=== PATIENT | female | born 1980 | race Two or more races ===

== ENCOUNTER 2020-03-05 09:27 | Observation (INO) | payer BC ==
[~2020-03-05] VITALS: Ht 157.5 cm; Wt 71.2 kg
[~2020-03-05 09:27] MED LIST: RANI-185
[2020-03-05] MEDS ORDERED: PREN-96 PO (09:41)
[2020-03-05 11:10] LABS: Basophils # (auto) 0 10 ^3/uL (0-0.2); Basophils % (auto) 0.4 % (0.0-2.0); Eosinophils # (auto) 0.1 10 ^3/uL (0-0.8); Eosinophils % (auto) 0.9 % (0.0-7.0); Hematocrit 32.7 % (36.0-46.0); Hemoglobin 11.3 g/dL (12.2-16.2); Lymphocytes # (auto) 1.1 10 ^3/uL (0.4-5.4); Lymphocytes % (auto) 14.5 % (10.0-50.0); Mean Corpuscular Hgb Conc. 34.5 g/dL (32.0-36.0); Mean Corpuscular Volume 89.6 fL (80.0-100.0); Monocytes # (auto) 0.3 10 ^3/uL (0-1.3); Monocytes % (auto) 4.6 % (0.0-12.0); Neutrophils % (auto) 79.6 % (37.0-80.0); Platelet Count (auto) 118 10^3/uL (140-450); Red Blood Cells 3.65 10^6/uL (4.0-5.20); Red Cell Distribution Width 15.3 % (11.8-14.3); White Blood Cell 7.5 10^3/uL (4.4-10.8)
[2020-03-05 11:24] LABS: INR 0.95 (0.9-1.15); Partial Thromboplastin Time 25.9 sec (23.64-32.05)
[2020-03-05 11:34] LABS: Albumin 2.6 g/dL (3.4-5.0); Potassium 3.1 mmol/L (3.5-5.1)
[2020-03-05 11:38] LABS: BUN/Creatinine Ratio 11.5; Bilirubin, Total 1.6 mg/dL (0.2-1.0); Total Protein 6.3 g/dL (6.4-8.2); Uric Acid 4.2 mg/dL (2.6-6.0)
[2020-03-05] MEDS ORDERED: POTASSIUM CHL 20 Meq TABLET PO ONE (12:00)
== END 2020-03-05 12:15 | disposition home or self-care (01) | DRG 833 ==
LOC: LDRP 09:27
PROVIDERS: ADMIT Obstetrics & Gynecology; ATTEND Obstetrics & Gynecology
DX: O26.893 Other specified pregnancy related conditions, third trimester (principal); M79.89 Other specified soft tissue disorders; Z3A.37 37 weeks gestation of pregnancy
CPT/HCPCS: 36415; 59025; 76818; 80053; 81002; 84550; 85025; 85610; 85730; G0378

== ENCOUNTER 2020-03-14 18:00 | Inpatient (IN) | payer BC ==
[~2020-03-14] VITALS: Ht 157.5 cm; Wt 72.1 kg
[~2020-03-14 18:00] MED LIST changes: +PREN-96 PO; -RANI-185
[2020-03-14] MEDS ORDERED: LACT. RINGERS/OXYTOCIN 20UNITS 1,000 ML IV SCH (18:21)
[2020-03-14] MEDS ORDERED: METHYLERGONOVINE MALEATE 0.2 MG/ML AMP IM PRN (18:30)
[2020-03-14] MEDS ORDERED: PHISODERM TOP SOLN 240ML BTL TOP PRN (18:30)
[2020-03-14] MEDS ORDERED: CARBOPROST TROMETHAMINE 250 MCG/1ML VIAL IM PRN (18:30)
[2020-03-14] MEDS ORDERED: DERMOPLAST 60ML BOTTLE TOP PRN (18:30)
[2020-03-14] MEDS ORDERED: LIDOCAINE 2%HCL (LOCAL ANESTH.) INJ 20ML MDV ID ONE (18:30)
[2020-03-14] MEDS ORDERED: PENICILLIN G POT 5MIL/D5 50ML 50 ML IV ONE (18:30)
[2020-03-14] MEDS ORDERED: WITCH HAZEL-GLYCERIN PAD TOP PRN (18:30)
[2020-03-14] MEDS: LACTATED RINGER'S 1,000 ML IV SCH (18:53)
[2020-03-14 19:10] LABS: Basophils # (auto) 0 10 ^3/uL (0-0.2); Basophils % (auto) 0.2 % (0.0-2.0); Eosinophils # (auto) 0 10 ^3/uL (0-0.8); Eosinophils % (auto) 0.5 % (0.0-7.0); Hematocrit 34.5 % (36.0-46.0); Hemoglobin 11.7 g/dL (12.2-16.2); Lymphocytes # (auto) 1.7 10 ^3/uL (0.4-5.4); Lymphocytes % (auto) 21.5 % (10.0-50.0); Mean Corpuscular Hemoglobin 30.6 pg (28.0-32.0); Mean Corpuscular Hgb Conc. 33.9 g/dL (32.0-36.0); Mean Corpuscular Volume 90.1 fL (80.0-100.0); Monocytes # (auto) 0.5 10 ^3/uL (0-1.3); Monocytes % (auto) 6.5 % (0.0-12.0); Neutrophils # (auto) 5.6 10 ^3/uL (1.6-8.6); Neutrophils % (auto) 71.3 % (37.0-80.0); Nucleated Red Blood Cells % 0.1 %; Platelet Count (auto) 128 10^3/uL (140-450); Red Blood Cells 3.83 10^6/uL (4.0-5.20); Red Cell Distribution Width 15.5 % (11.8-14.3); White Blood Cell 7.9 10^3/uL (4.4-10.8)
[2020-03-14 19:13] LABS: Urine Bacteria FEW /hpf (None Seen); Urine Blood TRACE /uL (Negative); Urine Specific Gravity 1.005 (1.001-1.035); Urine WBC 3 /hpf (0 - 5)
[2020-03-14 19:25] LABS: INR 0.94 (0.9-1.15); Partial Thromboplastin Time 25.9 sec (23.64-32.05)
[2020-03-14 19:28] LABS: Amphetamine Screen, Urine NEGATIVE (NEGATIVE); Barbiturate Scree,Urine NEGATIVE (NEGATIVE); Benzodiazephine Screen, Urine NEGATIVE (NEGATIVE); Cannabinoid Screen, Urine NEGATIVE (NEGATIVE); Cocaine Screen, Urine NEGATIVE (NEGATIVE); Opiate Scree,Urine NEGATIVE (NEGATIVE); Phencyclidine Screen, Urine NEGATIVE (NEGATIVE)
[2020-03-14 19:29] LABS: Albumin 2.7 g/dL (3.4-5.0); Calcium 8.7 mg/dL (8.5-10.1); Potassium 3.6 mmol/L (3.5-5.1)
[2020-03-14 19:31] LABS: BUN/Creatinine Ratio 14.3
[2020-03-14 19:34] LABS: Bilirubin, Total 1.7 mg/dL (0.2-1.0); Total Protein 6.5 g/dL (6.4-8.2)
[2020-03-14 19:35] LABS: Alcohol, Urine < 3.0 mg/dL (0-10)
[2020-03-14] MEDS ORDERED: LACTATED RINGER'S 1,000 ML IV ONE (20:43)
[2020-03-14] MEDS ORDERED: fentaNYL 200mCg/100ml W ROPIVA 100 ML EPI SCH (20:45)
[2020-03-14] MEDS ORDERED: ePHEDrine SULFATE 50 MG/ML AMP IV ONE ×2 (20:45→21:45)
[2020-03-14] MEDS ORDERED: LIDOCAINE W/ EPINEPHRINE 1 % INJ 30ML IJ ONE (20:45)
[2020-03-14] MEDS ORDERED: fentaNYL CITRATE 100 MCG/2 ML VL IV ONE (20:45)
[2020-03-14] MEDS ORDERED: NALOXONE HCL 0.4 MG/ML VIAL IV ONE ×2 (20:45→21:45)
[2020-03-14] MEDS ORDERED: LIDOCAINE HCL 2 %PF INJ 10ML AMP IJ ONE ×2 (21:12→22:15)
[2020-03-14] MEDS ORDERED: LACTATED RINGER'S 500 ML IV ONE (21:39)
[2020-03-14] MEDS ORDERED: SODIUM CHLORIDE 0.9% 500 ML IV PRN (21:39)
[2020-03-14] MEDS: PENICILLIN G POTASSIUM 2,500,000 UNITS in D5W 5% 50 ML IV SCH (22:53)
[2020-03-14] MEDS: fentaNYL 200mCg/100ml W ROPIVA 100 ML EPI SCH (23:10)
[2020-03-15] MEDS ORDERED: ONDANSETRON HCL 4 MG/2 ML VIAL IV PRN (02:40)
[2020-03-15] MEDS ORDERED: PENICILLIN G POT 5MIL/D5 50ML 0 ML IV ONE (02:56)
[2020-03-15] MEDS: PENICILLIN G POTASSIUM 2,500,000 UNITS in D5W 5% 50 ML IV SCH (03:09)
[2020-03-15] MEDS: fentaNYL 200mCg/100ml W ROPIVA 100 ML EPI SCH (05:46)
[2020-03-15] MEDS ORDERED: ACETAMINOPHEN 325 MG TAB PO PRN (07:15)
--- NOTE | 2020-03-15 08:15 | NUR ---
Ambulation: Patient OOB with standby assistance by RN. Patient ambulated to bathroom with steady gait. Patient able to void without difficulty. Pericare teaching provided with returned demonstration by patient. Clean gown provided and bed linen changed. Patient ambulated back to bed with steady gait and no distress noted.
[2020-03-15] MEDS: IBUPROFEN 600 MG TAB PO PRN ×2 (08:49→16:24)
--- NOTE | 2020-03-15 08:50 | NUR ---
MAGGIEAR received from Callie Ruffin RN.
[2020-03-15 10:47] VITALS: BP 104/56
[2020-03-15 15:05] VITALS: BP 113/64
[2020-03-15 19:00] VITALS: BP 132/73
--- NOTE | 2020-03-15 20:52 | NUR ---
IV removal IV DC'd with clean technique, catheter fully intact. Pressure dressing applied to site. Patient tolerated well. NOTE:
[2020-03-15 23:00] VITALS: BP 118/69
[2020-03-16 03:00] VITALS: BP 134/87
[2020-03-16] MEDS: IBUPROFEN 600 MG TAB PO PRN (04:49)
[2020-03-16] MEDS: LACTATED RINGER'S 1,000 ML IV SCH (06:22)
[2020-03-16 06:35] VITALS: BP 112/72
--- NOTE | 2020-03-16 10:00 | NUR ---
Discharge: Discharge instructions given as ordered. Pt encouraged to follow up with HARMONIC ANALYST as instructed. All questions and concerns addressed. Patient verbalized understanding. Medication reconciliation completed and copy given to patient. Patient encouraged to prepare to depart unit.
--- NOTE | 2020-03-16 10:17 | NUR ---
Discharge: Patient taken to vehicle via wheelchair with all personal belongings, accompanied by staff and family member. No distress noted at time of departure, no adverse changes in status since initial assessment.
[2020-03-17 07:10] LABS: RPR Non Reactive (Non Reactive)
[2020-07-17] MEDS ORDERED: CHOL20007 PO (10:51)
== END 2020-03-16 10:17 | disposition home or self-care (01) | DRG 807 ==
LOC: LDRP 18:00 → OBSVTOIN 18:05
PROVIDERS: ADMIT Obstetrics & Gynecology; ATTEND Obstetrics & Gynecology
PROC: 10E0XZZ Delivery of Products of Conception, External Approach (ICD-10-PCS; principal; 2020-03-15)
PROC: 0HQ9XZZ Repair Perineum Skin, External Approach (ICD-10-PCS; 2020-03-15)
PROC: 3E0R3BZ Introduction of Anesthetic Agent into Spinal Canal, Percutaneous Approach (ICD-10-PCS; 2020-03-15)
PROC: 00HU33Z Insertion of Infusion Device into Spinal Canal, Percutaneous Approach (ICD-10-PCS; 2020-03-15)
DX: O70.0 First degree perineal laceration during delivery (principal); Z37.0 Single live birth; Z3A.39 39 weeks gestation of pregnancy; Z11.59 Encounter for screening for other viral diseases
CPT/HCPCS: 36415; 51702; 59409; 62282; 80053; 80307; 81001; 84112; 85025; 85610; 85730; 86592; 86850; 86900; 86901; 94760; 96365; 96366; 96374; G0378; J2405; J2540; J2590; J7060

== ENCOUNTER 2020-04-22 18:22 | Inpatient (IN) | payer BC ==
[~2020-04-22] VITALS: Ht 157.5 cm; Wt 63.0 kg
--- NOTE | 2020-04-22 18:10 | NUR ---
Pt Arrived on Unit Pt arrived on unit from [facility]. Pt is a/ox4 with no s/s of distress or SOB. Pt is able to ambulate without difficulty. Safety measures initiated with call light within reach, bed in lowest position and side rails up. Will continue to monitor.
--- NOTE | 2020-04-22 18:23 | NUR ---
Keely Riggs MD requesting orders and informing of arrival of patient. Will continue to monitor. Addendum: 04/22/20 at 1852 by JANIS SINHA RN RN CALLED BACK. ORDERS GIVEN, READ BACK AND VERIFIED. WILL IMPLEMENT.
[2020-04-22] MEDS ORDERED: HYDROcodone-ACET 5/325MG TAB PO PRN (18:45)
[2020-04-22] MEDS ORDERED: levoFLOXacin 750MG 150 ML IV ONE (18:45)
[2020-04-22] MEDS ORDERED: MORPHINE SULF INJ 2 MG/ML SYRINGE 1ML IV PRN (18:45)
[2020-04-22 18:52] VITALS: BP 150/93
[2020-04-22] MEDS: SODIUM CHLORIDE 0.9% 1,000 ML IV SCH (19:11)
--- NOTE | 2020-04-22 20:00 | NUR ---
Keely hospitalist Patient requesting something for a headache Addendum: 04/23/20 at 0049 by IMTIAZ WEINBERG RN RN Actual time [facility] [id number]
--- NOTE | 2020-04-22 20:00 | NUR ---
Opening Shift Note Assumed care of patient. Awake, alert and oriented x4. No S/S of distress/SOB or pain. Patient is on room air with even and unlabored respirations. Instructed on POC and to call for assist PRN. Bed locked, in lowest position, call light within reach, side rails up x2. Will continue to monitor for changes Q1hr and PRN.
[2020-04-22] MEDS: ONDANSETRON HCL 4 MG/2 ML VIAL IV PRN (20:31)
--- NOTE | 2020-04-22 21:54 | NUR ---
IV insertion IV access obtained, via clean sterile technique by inserting 20 gauge catheter at left upper arm after 2 attempts. IV secured properly. No trauma to site. Patient tolerated well.
[2020-04-22 22:00] VITALS: BP 151/80
--- NOTE | 2020-04-22 22:01 | NUR ---
IV removal Patient reporting pain at IV site. Right AC IV DC'd with sterile technique, catheter fully intact. Pressure dressing applied to site. Patient tolerated procedure well.
[2020-04-22] MEDS ORDERED: ACETAMINOPHEN 325 MG TAB PO ONE (22:15)
--- NOTE | 2020-04-22 22:15 | NUR ---
Call back from hospitalist New orders received. Will continue with care
[2020-04-22] MEDS: metroNIDAZOLE 500MG/100ML 100 ML IV SCH (22:54)
--- NOTE | 2020-04-22 23:15 | NUR ---
Call from MD Zbigniew Sotomayor New orders received. Will continue with care.
[2020-04-23 05:00] VITALS: BP 139/86
[2020-04-23] MEDS: metroNIDAZOLE 500MG/100ML 100 ML IV SCH ×3 (05:34→22:18)
[2020-04-23] MEDS: SODIUM CHLORIDE 0.9% 1,000 ML IV SCH ×2 (05:34→14:45)
--- NOTE | 2020-04-23 06:25 | NUR ---
Hospitalist paged Pt requesting something for a headache. Awaiting call back
[2020-04-23 06:38] LABS: Basophils # (auto) 0 10 ^3/uL (0-0.2); Basophils % (auto) 0.3 % (0.0-2.0); Eosinophils # (auto) 0.1 10 ^3/uL (0-0.8); Eosinophils % (auto) 2.5 % (0.0-7.0); Hematocrit 39.8 % (36.0-46.0); Hemoglobin 13.4 g/dL (12.2-16.2); Lymphocytes # (auto) 1.2 10 ^3/uL (0.4-5.4); Lymphocytes % (auto) 23.5 % (10.0-50.0); Mean Corpuscular Hemoglobin 29.4 pg (28.0-32.0); Mean Corpuscular Hgb Conc. 33.6 g/dL (32.0-36.0); Mean Corpuscular Volume 87.6 fL (80.0-100.0); Monocytes # (auto) 0.3 10 ^3/uL (0-1.3); Monocytes % (auto) 6.1 % (0.0-12.0); Neutrophils # (auto) 3.5 10 ^3/uL (1.6-8.6); Neutrophils % (auto) 67.6 % (37.0-80.0); Nucleated Red Blood Cells % 0.1 %; Platelet Count (auto) 126 10^3/uL (140-450); Red Blood Cells 4.55 10^6/uL (4.0-5.20); Red Cell Distribution Width 14.8 % (11.8-14.3); White Blood Cell 5.1 10^3/uL (4.4-10.8)
[2020-04-23 07:01] LABS: Albumin 3.2 g/dL (3.4-5.0); Calcium 8.3 mg/dL (8.5-10.1); Potassium 3.2 mmol/L (3.5-5.1)
[2020-04-23 07:04] LABS: BUN/Creatinine Ratio 8.9; Bilirubin, Total 6.6 mg/dL (0.2-1.0); Total Protein 6.3 g/dL (6.4-8.2)
[2020-04-23 07:47] LABS: INR 1.06 (0.9-1.15)
--- NOTE | 2020-04-23 07:50 | NUR ---
Opening Note Assumed pt care from NOC RN. Pt is aox4 with no s/s of distress or SOB. Pt is currently sitting upright in bed with mild c/o BILL, 01/16. Discussed POC; pending ERCP today. Pt has not signed consents due to MD not yet speaking with her. Pt is still NPO. Safety measures maintained with call light within reach, bed in lowest position and side rails up. Will continue to monitor.
--- NOTE | 2020-04-23 08:10 | NUR ---
COVID SWAB WALKED TO LAB
[2020-04-23 09:00] VITALS: BP 140/91
[2020-04-23] MEDS: levoFLOXacin 500MG 100 ML IV SCH (09:08)
--- NOTE | 2020-04-23 11:09 | NUR ---
Pt Taken Down to Pre-Op Pt taken to Pre-Op via deborah. Pt is a/ox4 with no s/s of distress or SOB. Report given to Pre-Op staff. All questions were answered. Addendum: 04/23/20 at 1146 by JANIS SINHA RN RN Informed that pt will not have procedure until 1400. Staff sent pt back up to floor. To go back down to Pre-Op at 1330. Pt is a/ox4 with no s/s of distress.
[2020-04-23] MEDS: ONDANSETRON HCL 4 MG/2 ML VIAL IV PRN ×2 (11:48→21:17)
--- NOTE | 2020-04-23 12:16 | NUR ---
Pt C/O BILL/Migraine Pt states that she is experiencing a BILL 04/17 that is not being relived by [employer]. Paged MD for possible orders; left message on answering service. Will continue to monitor.
[2020-04-23] MEDS ORDERED: MORPHINE SULF INJ 2 MG/ML SYRINGE 1ML IV PRN (12:30)
[2020-04-23 13:00] VITALS: BP 148/95
--- NOTE | 2020-04-23 13:10 | NUR ---
Dr Bliss at Bedside MD to see pt. New orders given, read back and verified.
[2020-04-23] MEDS ORDERED: HYDROcodone-ACET 10/325MG TAB PO PRN (13:30)
--- NOTE | 2020-04-23 13:45 | NUR ---
Pt Taken Down to Pre-Op Pt taken down via gurney. Report given to Pre-op staff, all questions were answered. Pt is a/ox4 upon d/c.
[2020-04-23] MEDS ORDERED: IOHEXOL 300 MG/ML 100ML BOTTLE IJ ONE (13:51)
[2020-04-23] MEDS ORDERED: METOCLOPRAMIDE HCL 5MG/ml INJ 2ml VIAL ONE (14:07)
[2020-04-23] MEDS ORDERED: MIDAZOLAM HCL 1MG/1ML-2 ML VIAL ONE ×3 (14:07→14:46)
[2020-04-23] MEDS ORDERED: GLYCOPYRROLATE 0.2 MG/ML 1ML VIAL ONE (14:12)
[2020-04-23] MEDS ORDERED: KETAMINE HCL 10 ML ONE (14:12)
[2020-04-23] MEDS ORDERED: diphenhdrAMINE HCL 50 MG/1 ML VL ONE (14:12)
[2020-04-23] MEDS ORDERED: LIDOCAINE 1% (LOCAL ANESTH.) PF 5ml SDV ONE ×2 (14:13→15:29)
[2020-04-23] MEDS ORDERED: PROPOFOL 10 MG/ML 20 ML IV ONE ×3 (14:14→15:30)
[2020-04-23] MEDS ORDERED: ESMOLOL HCL 10 ML IV ONE (14:28)
[2020-04-23] MEDS ORDERED: METOPROLOL TARTRATE 1MG/1ML-5ML VIAL IV ONE (14:28)
[2020-04-23] MEDS ORDERED: HYDROmorphone HCL 2 MG/ML VL IV PRN ×2 (14:30)
[2020-04-23] MEDS ORDERED: ONDANSETRON HCL 4 MG/2 ML VIAL IV PRN (14:30)
[2020-04-23] MEDS ORDERED: fentaNYL CITRATE 100 MCG/2 ML VL ONE (14:56)
[2020-04-23] MEDS ORDERED: hydrALAZINE HCL 20 MG/ML VL ONE (15:04)
[2020-04-23] MEDS ORDERED: EPINEPHrine HCL 1 MG/10 ML SYRG ONE (16:00)
[2020-04-23] MEDS ORDERED: SOD CHL 0.45% 1,000 ML IV ONE (16:15)
[2020-04-23 17:00] VITALS: BP 144/90
--- NOTE | 2020-04-23 17:08 | NUR ---
Pt Arrived Back on Unit Pt back on unit from OR. Pt is a/ox4 with no s/s of distress or SOB. Pt is drowsey at this time. Abdomen is soft and slightly round. Safety measures maintained with call light within reach, bed in lowest position and side rails up. Bed alarm currently on.
[2020-04-23 17:10] VITALS: BP 151/92
--- NOTE | 2020-04-23 19:15 | NUR ---
Opening Shift Note Assumed care of patient, awake and alert. No S/S of distress/SOB or pain. Instructed on POC and to call for assist PRN, will continue to monitor for changes Q1hr and PRN. Safety precautions in place bed is in lowest position and bed rails 2x. Call light and bedside table are within reach.
[2020-04-23] MEDS: HYDROmorphone HCL 2 MG/ML VL IV PRN (21:17)
[2020-04-23 22:00] VITALS: BP 150/91
[2020-04-24] MEDS: HYDROmorphone HCL 2 MG/ML VL IV PRN ×6 (00:16→17:25)
[2020-04-24] MEDS: ONDANSETRON HCL 4 MG/2 ML VIAL IV PRN (03:41)
[2020-04-24 04:53] LABS: Basophils # (auto) 0 10 ^3/uL (0-0.2); Basophils % (auto) 0.2 % (0.0-2.0); Eosinophils # (auto) 0 10 ^3/uL (0-0.8); Eosinophils % (auto) 0.2 % (0.0-7.0); Hemoglobin 13.8 g/dL (12.2-16.2); Lymphocytes # (auto) 1.3 10 ^3/uL (0.4-5.4); Lymphocytes % (auto) 12.8 % (10.0-50.0); Mean Corpuscular Hemoglobin 29.6 pg (28.0-32.0); Mean Corpuscular Hgb Conc. 33.6 g/dL (32.0-36.0); Mean Corpuscular Volume 88.2 fL (80.0-100.0); Monocytes # (auto) 0.4 10 ^3/uL (0-1.3); Monocytes % (auto) 4.4 % (0.0-12.0); Neutrophils # (auto) 8.3 10 ^3/uL (1.6-8.6); Neutrophils % (auto) 82.4 % (37.0-80.0); Nucleated Red Blood Cells % 0.3 %; Platelet Count (auto) 147 10^3/uL (140-450); Red Blood Cells 4.64 10^6/uL (4.0-5.20); Red Cell Distribution Width 14.9 % (11.8-14.3); White Blood Cell 10.1 10^3/uL (4.4-10.8)
[2020-04-24 05:00] VITALS: BP 149/98
[2020-04-24 05:11] LABS: Albumin 3.5 g/dL (3.4-5.0); Calcium 8.9 mg/dL (8.5-10.1); Potassium 3.2 mmol/L (3.5-5.1)
[2020-04-24 05:16] LABS: BUN/Creatinine Ratio 9.3; Bilirubin, Total 2.7 mg/dL (0.2-1.0); Total Protein 6.9 g/dL (6.4-8.2)
[2020-04-24] MEDS: metroNIDAZOLE 500MG/100ML 100 ML IV SCH ×2 (05:18→13:46)
[2020-04-24 05:46] LABS: Urine Bacteria FEW /hpf (None Seen); Urine Blood 3+ /uL (Negative); Urine Mucus FEW (None Seen); Urine Specific Gravity 1.018 (1.001-1.035); Urine WBC 466 /hpf (0 - 5)
--- NOTE | 2020-04-24 07:12 | NUR ---
End of Shift Note Endorsed care to dayshift RN. At this time patient has no s/s of distress or SOB. Patient responsive to name and touch.
--- NOTE | 2020-04-24 07:40 | NUR ---
Opening Note Assumed pt care from NOC RN. Pt is a/ox4 with no s/s of distress or SOB. Discussed POC with pt and possibility of procedure today; pt verbalized understanding and has been NPO. Pt is c/o pain 03/18, discussed next available pain medication. Safety measures maintained with call light within reach, bed in lowest position and side rails up. Will continue to monitor.
--- NOTE | 2020-04-24 08:08 | NUR ---
Pages Paged Dr Bliss. Pt is c/o nausea not relieved. Paged requesting possible change of Zofran order. Left message. Awaiting call back. Will continue to monitor. Addendum: 04/24/20 at 0914 by JANIS SINHA RN RN called back, new orders given, read back and verified. Will implement.
[2020-04-24] MEDS: levoFLOXacin 500MG 100 ML IV SCH (08:51)
[2020-04-24 09:29] VITALS: BP 152/104
[2020-04-24] MEDS: PROMETHAZINE HCL 25 MG/ML 1ML IV PRN ×2 (12:48→19:49)
--- NOTE | 2020-04-24 13:00 | NUR ---
Surgery Update OR staff stated that pt is on schedule for procedure at 1600. Will continue to monitor.
--- NOTE | 2020-04-24 13:24 | NUR ---
IV Insertion 20G to pt's R AC inserted. One attempt made. Clean/sterile technique used. Pt tolerated well. 20G to pt's L AC removed, catheter was removed fully intact. Site is asymptomatic. Pressure was applied to site for 3 minutes with gauze and then wrapped in coban. Pt instructed to keep dressing on for 30 minutes.
[2020-04-24 14:34] VITALS: BP 155/100
--- NOTE | 2020-04-24 15:01 | NUR ---
Pt Taken Down to Pre-Op Pt taken to pre-op for procedure. Report given to staff. All questions were answered.
[2020-04-24] MEDS ORDERED: LIDOCAINE 1% HCL (LOCAL ANESTH.) INJ 20ML MDV ONE (15:06)
[2020-04-24] MEDS ORDERED: BUPIVACAINE 0.25% INJ 50ML VIAL ONE (15:06)
[2020-04-24] MEDS ORDERED: SUCCINYLCHOLINE CHLORIDE 20 MG/ML 10ML VIAL IV ONE (15:31)
[2020-04-24] MEDS ORDERED: LIDOCAINE 1% (LOCAL ANESTH.) PF 5ml SDV ONE (15:31)
[2020-04-24] MEDS ORDERED: cefOXitin 2GM/100ML 100 ML IV ONE (15:33)
[2020-04-24] MEDS ORDERED: MIDAZOLAM HCL 1MG/1ML-2 ML VIAL ONE (15:34)
[2020-04-24] MEDS ORDERED: METOCLOPRAMIDE HCL 5MG/ml INJ 2ml VIAL ONE (15:35)
[2020-04-24] MEDS ORDERED: PROPOFOL 10 MG/ML 20 ML IV ONE (15:36)
[2020-04-24] MEDS ORDERED: ROCURONIUM 10MG/ML 10ML VIAL IV ONE (15:38)
[2020-04-24] MEDS ORDERED: fentaNYL CITRATE 100 MCG/2 ML VL ONE (15:43)
[2020-04-24] MEDS ORDERED: NALOXONE HCL 0.4 MG/ML VIAL IV PRN (16:00)
[2020-04-24] MEDS ORDERED: ONDANSETRON HCL 4 MG/2 ML VIAL IV PRN (16:00)
[2020-04-24] MEDS ORDERED: hydrALAZINE HCL 20 MG/ML VL IV PRN (16:00)
[2020-04-24] MEDS ORDERED: HYDROmorphone HCL 2 MG/ML VL IV PRN (16:00)
[2020-04-24] MEDS ORDERED: hydrALAZINE HCL 20 MG/ML VL ONE (16:04)
[2020-04-24] MEDS ORDERED: ESMOLOL HCL 10 ML IV ONE (16:08)
--- NOTE | 2020-04-24 16:25 | NUR ---
Est energy needs 2094-5327 kcal (30-33 kcal/kg BW 62kg) Est protein needs 50-62g (0.8-1g/kg BW 62kg) will reassess prn. Addendum: 04/24/20 at [address] Amended: Links added.
[2020-04-24] MEDS ORDERED: NEOSTIGMINE 1 MG/ML INJ (10mg/10ML VIAL) ONE (16:45)
[2020-04-24] MEDS ORDERED: GLYCOPYRROLATE 0.2 MG/ML 1ML VIAL ONE (16:45)
[2020-04-24] MEDS ORDERED: OXYCODONE W/ ACETAMINOPHEN 5/325MG TABLET PO PRN (17:15)
--- NOTE | 2020-04-24 17:50 | NUR ---
Pt Back on Unit From OR Pt back on unit from OR. Pt is a/ox4; very drowsey. Pt has 3 incisions and maryanne drain present. Pt placed on 2L via NC. Safety measures maintained with call light within reach, bed in lowest position, side rails up, and bed alarm on. Will continue to monitor.
[2020-04-24 17:51] VITALS: BP 141/81
[2020-04-24] MEDS: D5W/SOD CHL 0.45%/KCL 20MEQ 1,000 ML IV SCH (19:00)
[2020-04-24] MEDS: OXYCODONE W/ ACETAMINOPHEN 5/325MG TABLET PO PRN (19:49)
[2020-04-24 22:00] VITALS: BP 147/96
[2020-04-24] MEDS: MORPHINE SULF INJ 2 MG/ML SYRINGE 1ML IV PRN (22:48)
[2020-04-25] MEDS: MORPHINE SULF INJ 2 MG/ML SYRINGE 1ML IV PRN ×2 (01:05→04:38)
[2020-04-25 05:00] VITALS: BP 141/92
[2020-04-25 06:36] LABS: Basophils # (auto) 0 10 ^3/uL (0-0.2); Basophils % (auto) 0.1 % (0.0-2.0); Eosinophils # (auto) 0 10 ^3/uL (0-0.8); Eosinophils % (auto) 0.1 % (0.0-7.0); Hemoglobin 13.2 g/dL (12.2-16.2); Lymphocytes # (auto) 1.2 10 ^3/uL (0.4-5.4); Lymphocytes % (auto) 11.8 % (10.0-50.0); Mean Corpuscular Hemoglobin 29.2 pg (28.0-32.0); Mean Corpuscular Volume 88.5 fL (80.0-100.0); Monocytes # (auto) 0.6 10 ^3/uL (0-1.3); Monocytes % (auto) 5.7 % (0.0-12.0); Neutrophils # (auto) 8.4 10 ^3/uL (1.6-8.6); Neutrophils % (auto) 82.3 % (37.0-80.0); Nucleated Red Blood Cells % 0.1 %; Platelet Count (auto) 171 10^3/uL (140-450); Red Blood Cells 4.52 10^6/uL (4.0-5.20); Red Cell Distribution Width 15.4 % (11.8-14.3); White Blood Cell 10.2 10^3/uL (4.4-10.8)
[2020-04-25] MEDS: D5W/SOD CHL 0.45%/KCL 20MEQ 1,000 ML IV SCH (06:53)
[2020-04-25 06:56] LABS: Albumin 3.2 g/dL (3.4-5.0); BUN/Creatinine Ratio 11.7; Bilirubin, Direct 0.7 mg/dL (0-0.2); Bilirubin, Total 1.8 mg/dL (0.2-1.0); Calcium 8.3 mg/dL (8.5-10.1); Total Protein 6.7 g/dL (6.4-8.2)
--- NOTE | 2020-04-25 07:15 | NUR ---
End of Shift Note Endorsed care to dayshift RN. At this time patient has no s/s of distress or SOB. Patient responsive to name and touch.
--- NOTE | 2020-04-25 08:15 | NUR ---
Dr. Sheridan Buckley at bedside with patient to assess and discuss plan of care. No new orders received at this time
[2020-04-25] MEDS: OXYCODONE W/ ACETAMINOPHEN 5/325MG TABLET PO PRN (08:27)
[2020-04-25 09:00] VITALS: BP 134/67
[2020-04-25] MEDS ORDERED: ENOXAPARIN SOD 40 MG/0.4 ML SYRINGE SC SCH (10:00)
[2020-04-25] MEDS ORDERED: POTASSIUM CHL 20MEQ/100ML 100 ML IV ONE (11:00)
[2020-04-25] MEDS ORDERED: POTASSIUM EFFERVESENT TAB 25 MEQ PO ONE (11:00)
[2020-04-25] MEDS ORDERED: PERCOT PO (11:45)
[2020-04-25 13:30] VITALS: BP 135/94
[2020-04-25 14:00] VITALS: BP 102/76
--- NOTE | 2020-04-25 15:50 | NUR ---
GAVE PATIENT EXTENSIVE EDUCATION ON CARE OF HER WINTER DRAIN. SHE WAS ALSO EDUCATED ON SIGNS AND SYMPTOMS OF INFECTION AND HOW THE OUTPUT SHOULD CHANGE IN COLOR AND AMOUNT. SHE HAS TOLERATED HER DINNER LAST NIGHT AND HER LUNCH TODAY WELL WITH NO NAUSEA OR VOMITING.
--- NOTE | 2020-04-25 16:27 | NUR ---
Discharge instructions given as ordered. Encourage to follow up with PMD as instructed. All questions and concerns addressed. Patient verbalized understanding. Medication reconciliation form completed and copy given to patient. IV removed with catheter intact, pressure dressing applied. Patient taken to vehicle via wheelchair with all personal belongings, accompanied by staff and . No distress noted at time of departure.
== END 2020-04-25 16:24 | disposition home health service (06) | DRG 419 ==
LOC: WEST WING 18:22
PROVIDERS: ADMIT Internal Medicine; ATTEND Internal Medicine
PROC: 0FC98ZZ Extirpation of Matter from Common Bile Duct, Via Natural or Artificial Opening Endoscopic (ICD-10-PCS; 2020-04-23)
PROC: 0F798DZ Dilation of Common Bile Duct with Intraluminal Device, Via Natural or Artificial Opening Endoscopic (ICD-10-PCS; 2020-04-23)
PROC: BF141ZZ Fluoroscopy of Gallbladder, Bile Ducts and Pancreatic Ducts using Low Osmolar Contrast (ICD-10-PCS; 2020-04-23)
PROC: 0DNU4ZZ Release Omentum, Percutaneous Endoscopic Approach (ICD-10-PCS; 2020-04-24)
PROC: 0FT44ZZ Resection of Gallbladder, Percutaneous Endoscopic Approach (ICD-10-PCS; principal; 2020-04-24 15:22)
DX: K80.67 Calculus of gallbladder and bile duct with acute and chronic cholecystitis with obstruction (principal); K66.0 Peritoneal adhesions (postprocedural) (postinfection); R79.89 Other specified abnormal findings of blood chemistry; K82.8 Other specified diseases of gallbladder; Z80.0 Family history of malignant neoplasm of digestive organs; Z20.828 Contact with and (suspected) exposure to other viral communicable diseases
CPT/HCPCS: 36415; 74018; 76001; 80053; 80076; 81001; 83690; 84702; 85025; 85610; 86850; 86900; 86901; G0378; J0330; J0694; J1956; J2001; J2250; J2405; J2704; J3480; J3490

== ENCOUNTER 2020-04-28 06:23 | Emergency (ER) | payer BC ==
[~2020-04-28] VITALS: Ht 157.5 cm; Wt 58.5 kg
[~2020-04-28 06:23] MED LIST changes: +PERCOT PO; -PREN-96 PO
[2020-04-28 06:37] VITALS: BP 140/77
[2020-04-28 08:29] LABS: Basophils # (auto) 0.1 10 ^3/uL (0-0.2); Basophils % (auto) 0.5 % (0.0-2.0); Eosinophils # (auto) 0.1 10 ^3/uL (0-0.8); Eosinophils % (auto) 0.8 % (0.0-7.0); Hematocrit 44.1 % (36.0-46.0); Hemoglobin 14.4 g/dL (12.2-16.2); Lymphocytes # (auto) 1.5 10 ^3/uL (0.4-5.4); Lymphocytes % (auto) 13.5 % (10.0-50.0); Mean Corpuscular Hemoglobin 28.8 pg (28.0-32.0); Mean Corpuscular Hgb Conc. 32.6 g/dL (32.0-36.0); Mean Corpuscular Volume 88.1 fL (80.0-100.0); Monocytes # (auto) 0.5 10 ^3/uL (0-1.3); Monocytes % (auto) 4.7 % (0.0-12.0); Neutrophils # (auto) 8.8 10 ^3/uL (1.6-8.6); Neutrophils % (auto) 80.5 % (37.0-80.0); Nucleated Red Blood Cells % 0.1 %; Platelet Count (auto) 297 10^3/uL (140-450); Red Cell Distribution Width 15.2 % (11.8-14.3)
[2020-04-28 08:56] LABS: Calcium 9.1 mg/dL (8.5-10.1); Potassium 3.3 mmol/L (3.5-5.1)
[2020-04-28 09:00] LABS: Albumin 3.5 g/dL (3.4-5.0); BUN/Creatinine Ratio 16.7
[2020-04-28 09:12] LABS: Bilirubin, Total 1.2 mg/dL (0.2-1.0); Total Protein 7.8 g/dL (6.4-8.2)
== END 2020-04-28 08:45 | disposition home or self-care (01) ==
LOC: ER 06:23
DX: K59.00 Constipation, unspecified (principal)
CPT/HCPCS: 36415; 80053; 85025

== ENCOUNTER → 2020-07-23 | Day surgery (SDC) | payer BC ==
[~2020-07-23] VITALS: Ht 157.5 cm; Wt 57.6 kg
[~2020-07-23] MED LIST changes: +CHOL20007 PO; +DexAMETHasone SOD PHOS 10MG/1ML VIAL INJ ONE; +HYDROmorphone HCL 2 MG/ML VL IV PRN; +IOHEXOL 300 MG/ML 100ML BOTTLE IJ ONE; +KETOROLAC TROMETH 30 MG/ML 1ML VIAL IV ONE; +LABETALOL HCL 5 MG/ML 4ML SYRINGE IV PRN; +MEPERIDINE HCL (25 MG/ML) 1ML VIAL ONE; +MIDAZOLAM HCL 1MG/1ML-2 ML VIAL IV PRN; +MIDAZOLAM HCL 1MG/1ML-2 ML VIAL ONE; +MORPHINE SULFATE 4 MG/ML SYR/VIAL IV PRN; +ONDANSETRON HCL 4 MG/2 ML VIAL IV PRN; -PERCOT PO; +PROPOFOL 10 MG/ML 20 ML IV ONE; +SUCCINYLCHOLINE CHLORIDE 20 MG/ML 10ML VIAL IV ONE; +ePHEDrine SULFATE 50 MG/ML AMP IV PRN; +fentaNYL CITRATE 100 MCG/2 ML VL ONE
[2020-07-23 15:55] VITALS: BP 132/81
== END | disposition home or self-care (01) ==
LOC: GI 11:09
PROVIDERS: ATTEND Internal Medicine
DX: K80.50 Calculus of bile duct without cholangitis or cholecystitis without obstruction (principal); I10 Essential (primary) hypertension; Z98.890 Other specified postprocedural states; Z20.828 Contact with and (suspected) exposure to other viral communicable diseases; Z79.899 Other long term (current) drug therapy
CPT/HCPCS: 36415; 43262; 43264; 74018; 84702; 88300; J0330; J1100; J2175; J2250; J2704; J3010; Q9967; U0003; 76000

== ENCOUNTER 2023-07-26 16:33 | Emergency (ER) | payer BC ==
[~2023-07-26] VITALS: Ht 154.9 cm; Wt 54.9 kg
[~2023-07-26 16:33] MED LIST changes: -DexAMETHasone SOD PHOS 10MG/1ML VIAL INJ ONE; -HYDROmorphone HCL 2 MG/ML VL IV PRN; -IOHEXOL 300 MG/ML 100ML BOTTLE IJ ONE; -KETOROLAC TROMETH 30 MG/ML 1ML VIAL IV ONE; -LABETALOL HCL 5 MG/ML 4ML SYRINGE IV PRN; -MEPERIDINE HCL (25 MG/ML) 1ML VIAL ONE; -MIDAZOLAM HCL 1MG/1ML-2 ML VIAL IV PRN; -MIDAZOLAM HCL 1MG/1ML-2 ML VIAL ONE; -MORPHINE SULFATE 4 MG/ML SYR/VIAL IV PRN; -ONDANSETRON HCL 4 MG/2 ML VIAL IV PRN; -PROPOFOL 10 MG/ML 20 ML IV ONE; -SUCCINYLCHOLINE CHLORIDE 20 MG/ML 10ML VIAL IV ONE; -ePHEDrine SULFATE 50 MG/ML AMP IV PRN; -fentaNYL CITRATE 100 MCG/2 ML VL ONE
[2023-07-26 18:27] LABS: Basophils # (auto) 0 10 ^3/uL (0-0.2); Basophils % (auto) 0.3 % (0.0-2.0); Eosinophils # (auto) 0 10 ^3/uL (0-0.8); Eosinophils % (auto) 0.3 % (0.0-7.0); Hematocrit 42.2 % (36.0-46.0); Hemoglobin 14.5 g/dL (12.2-16.2); Lymphocytes # (auto) 1.3 10 ^3/uL (0.4-5.4); Lymphocytes % (auto) 10.5 % (10.0-50.0); Mean Corpuscular Hemoglobin 31.3 pg (28.0-32.0); Mean Corpuscular Hgb Conc. 34.3 g/dL (32.0-36.0); Mean Corpuscular Volume 91.3 fL (80.0-100.0); Monocytes # (auto) 0.6 10 ^3/uL (0-1.3); Monocytes % (auto) 5.1 % (0.0-12.0); Neutrophils # (auto) 10.1 10 ^3/uL (1.6-8.6); Neutrophils % (auto) 83.8 % (37.0-80.0); Nucleated Red Blood Cells % 0.1 %; Red Blood Cells 4.63 10^6/uL (4.0-5.20)
[2023-07-26 18:30] LABS: Urine Bacteria FEW /hpf (None Seen); Urine Blood TRACE /uL (Negative); Urine Clarity HAZY (Clear); Urine Color Yellow (Yellow); Urine Mucus FEW (None Seen); Urine Protein, UAD 1+ (Negative); Urine Urobilinogen Normal (Negative); Urine WBC 14 /hpf (0 - 5)
[2023-07-26] MEDS ORDERED: HYDROmorphone HCL 2 MG/ML VL/or syr IV ONE (18:30)
[2023-07-26] MEDS ORDERED: ONDANSETRON HCL 4 MG/2 ML VIAL IV ONE (18:30)
[2023-07-26] MEDS ORDERED: SODIUM CHLORIDE 0.9% 1,000 ML IV ONE (18:30)
[2023-07-26] MEDS ORDERED: NAP500T PO (18:37)
[2023-07-26] MEDS ORDERED: CYCL-611 PO (18:37)
[2023-07-26 18:45] LABS: Alanine Aminotransferase 192 U/L (7-40); Albumin 4.8 g/dL (3.2-4.8); Alkaline Phosphatase 86 U/L (46-116); Anion Gap 12 (5-15); Aspartate Aminotransferase 378 U/L (13-40); BUN/Creatinine Ratio 14.3 (10.0-20.0); Blood Urea Nitrogen 9 mg/dL (9-23); Calcium 9.9 mg/dL (8.5-10.1); Carbon Dioxide 21 mmol/L (20-30); Chloride 106 mmol/L (98-107); Glucose 128 mg/dL (74-106); Potassium 3.5 mmol/L (3.5-5.1); Sodium 139 mmol/L (136-145)
[2023-07-26 18:46] LABS: Bilirubin, Total 3.9 mg/dL (0.2-1.0); Total Protein 7.5 g/dL (5.7-8.2)
[2023-07-26 20:28] VITALS: PULSE 97; RESP 20; O2SAT 100
[2023-07-26] MEDS ORDERED: METR375C PO (22:44)
[2023-07-26] MEDS ORDERED: AZITHROMYCIN 250 MG TAB PO ONE (22:45)
[2023-07-26] MEDS ORDERED: cefTRIAXone 1GM/50ML D5W 50 ML IV ONE (22:45)
[2023-07-26 23:50] VITALS: BP 158/96; PULSE 87; RESP 16; TEMP 98.8; O2SAT 96
[2023-07-29 07:06] LABS: Chlamydia Trachomatis, NAA Negative (Negative); Neisseria gonorrhoeae, NAA Negative (Negative)
== END 2023-07-26 23:53 | disposition home or self-care (01) ==
LOC: ER 16:33
DX: N39.0 Urinary tract infection, site not specified (principal); R10.2 Pelvic and perineal pain; R10.13 Epigastric pain; I10 Essential (primary) hypertension; Z79.899 Other long term (current) drug therapy; Z90.49 Acquired absence of other specified parts of digestive tract
CPT/HCPCS: 36415; 74177; 80053; 81001; 83690; 84702; 85025; 87491; 87591; 96361; 96365; 99285; J0696; J7030

== ENCOUNTER 2023-07-30 16:49 | Emergency (ER) | payer BC ==
[~2023-07-30] VITALS: Ht 157.5 cm; Wt 55.4 kg
[~2023-07-30 16:49] MED LIST changes: +CYCL-611 PO; +METR375C PO; +NAP500T PO
[2023-07-30 17:08] VITALS: BP 142/112; PULSE 78; RESP 18; O2SAT 100
[2023-07-30 17:49] LABS: Basophils # (auto) 0 10 ^3/uL (0-0.2); Basophils % (auto) 0.6 % (0.0-2.0); Eosinophils # (auto) 0.1 10 ^3/uL (0-0.8); Hematocrit 40.1 % (36.0-46.0); Hemoglobin 13.8 g/dL (12.2-16.2); Lymphocytes # (auto) 1.9 10 ^3/uL (0.4-5.4); Lymphocytes % (auto) 30.9 % (10.0-50.0); Mean Corpuscular Hemoglobin 31.6 pg (28.0-32.0); Mean Corpuscular Hgb Conc. 34.5 g/dL (32.0-36.0); Mean Corpuscular Volume 91.7 fL (80.0-100.0); Monocytes # (auto) 0.4 10 ^3/uL (0-1.3); Monocytes % (auto) 6.2 % (0.0-12.0); Neutrophils # (auto) 3.6 10 ^3/uL (1.6-8.6); Neutrophils % (auto) 60.3 % (37.0-80.0); Red Blood Cells 4.38 10^6/uL (4.0-5.20); Red Cell Distribution Width 14.1 % (11.8-14.3)
[2023-07-30 18:13] LABS: Alanine Aminotransferase 392 U/L (7-40); Albumin 4.5 g/dL (3.2-4.8); Alkaline Phosphatase 139 U/L (46-116); Anion Gap 10 (5-15); Aspartate Aminotransferase 149 U/L (13-40); BUN/Creatinine Ratio 12.1 (10.0-20.0); Blood Urea Nitrogen 7 mg/dL (9-23); Calcium 9.4 mg/dL (8.7-10.4); Carbon Dioxide 25 mmol/L (20-30); Chloride 104 mmol/L (98-107); Glucose 93 mg/dL (74-106); Lipase 61 U/L (12-53); Potassium 3.5 mmol/L (3.5-5.1); Sodium 139 mmol/L (136-145)
[2023-07-30 18:14] LABS: Bilirubin, Total 5.3 mg/dL (0.2-1.0); Total Protein 7.4 g/dL (5.7-8.2)
[2023-07-30 19:09] LABS: Urine Bacteria FEW /hpf (None Seen); Urine Blood Negative /uL (Negative); Urine Clarity Clear (Clear); Urine Color Yellow (Yellow); Urine Protein, UAD Negative (Negative); Urine Specific Gravity 1.008 (1.001-1.035); Urine Urobilinogen Normal (Negative); Urine WBC 1 /hpf (0 - 5)
[2023-07-30] MEDS ORDERED: SODIUM CHLORIDE 0.9% 1,000 ML IV SCH (20:45)
[2023-07-30] MEDS ORDERED: ACETAMINOPHEN 325 MG TAB PO PRN (20:45)
[2023-07-30] MEDS ORDERED: HYDROcodone-ACET 5/325MG TAB PO PRN (20:45)
[2023-07-31 10:51] LABS: Hepatitis B Surface Antigen Negative (Negative)
[2023-07-31 11:12] LABS: Hepatitis A Ab IgM Negative
[2023-07-31 11:13] LABS: Hepatitis B Core IgM Negative; Hepatitis C Antibody Negative (Negative)
== END 2023-07-31 03:38 | disposition left against medical advice (07) ==
LOC: ER 16:49
DX: K81.9 Cholecystitis, unspecified (principal); R10.2 Pelvic and perineal pain; E80.6 Other disorders of bilirubin metabolism; R74.01 Elevation of levels of liver transaminase levels; Z90.49 Acquired absence of other specified parts of digestive tract
CPT/HCPCS: 36415; 76705; 80053; 80074; 81001; 82248; 83690; 84702; 85025

== ENCOUNTER 2023-07-31 06:52 | Emergency (ER) | payer BC ==
[~2023-07-31] VITALS: Ht 154.9 cm; Wt 55.3 kg
[2023-07-31 07:28] LABS: Basophils # (auto) 0 10 ^3/uL (0-0.2); Basophils % (auto) 0.6 % (0.0-2.0); Eosinophils # (auto) 0.2 10 ^3/uL (0-0.8); Eosinophils % (auto) 2.8 % (0.0-7.0); Hematocrit 40.9 % (36.0-46.0); Hemoglobin 13.9 g/dL (12.2-16.2); Lymphocytes # (auto) 1.5 10 ^3/uL (0.4-5.4); Lymphocytes % (auto) 25.6 % (10.0-50.0); Mean Corpuscular Hemoglobin 31.5 pg (28.0-32.0); Mean Corpuscular Volume 92.5 fL (80.0-100.0); Monocytes # (auto) 0.3 10 ^3/uL (0-1.3); Monocytes % (auto) 4.8 % (0.0-12.0); Neutrophils # (auto) 3.9 10 ^3/uL (1.6-8.6); Neutrophils % (auto) 66.2 % (37.0-80.0); Nucleated Red Blood Cells % 0.1 %; Red Blood Cells 4.42 10^6/uL (4.0-5.20); Red Cell Distribution Width 14.2 % (11.8-14.3); White Blood Cell 5.9 10^3/uL (4.4-10.8)
[2023-07-31 07:57] LABS: Urine Bacteria FEW /hpf (None Seen); Urine Blood TRACE /uL (Negative); Urine Clarity Clear (Clear); Urine Color Yellow (Yellow); Urine Mucus FEW (None Seen); Urine Protein, UAD TRACE (Negative); Urine Specific Gravity 1.018 (1.001-1.035); Urine Urobilinogen Normal (Negative); Urine WBC 3 /hpf (0 - 5)
[2023-07-31 08:07] LABS: Alanine Aminotransferase 373 U/L (7-40); Albumin 4.6 g/dL (3.2-4.8); Alkaline Phosphatase 125 U/L (46-116); Anion Gap 8 (5-15); Aspartate Aminotransferase 106 U/L (13-40); Bilirubin, Total 3.8 mg/dL (0.2-1.0); Blood Urea Nitrogen 9 mg/dL (9-23); Calcium 9.3 mg/dL (8.5-10.1); Carbon Dioxide 23 mmol/L (20-30); Chloride 106 mmol/L (98-107); Glucose 84 mg/dL (74-106); INR 0.99 (0.9-1.15); Partial Thromboplastin Time 27.8 SEC (24.5-34.5); Potassium 3.3 mmol/L (3.5-5.1); Prothrombin Time 10.4 sec (9.3-11.8); Sodium 137 mmol/L (136-145); Total Protein 7.3 g/dL (5.7-8.2)
[2023-07-31] MEDS ORDERED: PANTOPRAZOLE 40 MG/10 ML VIAL INJ IV ONE (09:45)
[2023-07-31 12:00] VITALS: PULSE 77; RESP 18; O2SAT 96
[2023-07-31] MEDS: MORPHINE SULFATE 4 MG/ML SYR/VIAL IV ONE ×2 (12:19→14:39)
[2023-07-31] MEDS ORDERED: PIPERACILLIN-TAZOB 3.375GM 100 ML IV ONE (13:45)
[2023-07-31] MEDS ORDERED: metroNIDAZOLE 500MG/100ML 100 ML IV ONE (13:45)
[2023-07-31 14:30] VITALS: TEMP 98.9; O2SAT 100
[2023-07-31 14:39] VITALS: BP 150/94; PULSE 79; RESP 17
== END 2023-07-31 15:00 | disposition short-term general hospital (02) ==
LOC: ER 06:52
DX: K80.50 Calculus of bile duct without cholangitis or cholecystitis without obstruction (principal); Z90.49 Acquired absence of other specified parts of digestive tract; Z32.02 Encounter for pregnancy test, result negative; R74.8 Abnormal levels of other serum enzymes
CPT/HCPCS: 36415; 74181; 80053; 81001; 81025; 85025; 85610; 85730; 96374; 96375; 99285; C9113; J2270

== ENCOUNTER 2025-03-28 05:14 | Emergency (ER) | payer BC ==
[~2025-03-28] VITALS: Ht 157.5 cm; Wt 55.0 kg
[2025-03-28] MEDS: cloNIDine HCL 0.1 MG TAB PO ONE (05:39)
[2025-03-28 06:00] VITALS: PULSE 113; RESP 16; O2SAT 98
[2025-03-28 06:25] LABS: Basophils # (auto) 0 10 ^3/uL (0-0.2); Basophils % (auto) 0.3 % (0.0-2.0); Eosinophils # (auto) 0 10 ^3/uL (0-0.8); Eosinophils % (auto) 0.4 % (0.0-7.0); Hematocrit 42.7 % (36.0-46.0); Hemoglobin 15.2 g/dL (12.2-16.2); Lymphocytes # (auto) 1.2 10 ^3/uL (0.4-5.4); Lymphocytes % (auto) 11.5 % (10.0-50.0); Mean Corpuscular Hemoglobin 31.1 pg (28.0-32.0); Mean Corpuscular Hgb Conc. 35.6 g/dL (32.0-36.0); Mean Corpuscular Volume 87.5 fL (80.0-100.0); Monocytes # (auto) 0.3 10 ^3/uL (0-1.3); Monocytes % (auto) 3.3 % (0.0-12.0); Neutrophils # (auto) 8.5 10 ^3/uL (1.6-8.6); Neutrophils % (auto) 84.5 % (37.0-80.0); Platelet Count (auto) 184 10^3/uL (140-450); Red Blood Cells 4.88 10^6/uL (4.0-5.20); Red Cell Distribution Width 13.3 % (11.8-14.3)
--- NOTE | 2025-03-28 06:32 | ED.PDOC ---
[facility] HPI Comments This is a 44 year old female presenting to the ED with chief complaint of vaginal bleeding. Patient reports that she had some light spotting from 03/15-03/16, then from 03/17-03/18 she had heavy bleeding that suddenly stopped until this morning. Patient relays that she is currently experiencing a headache with associated diarrhea. Patient states that she recently stopped her anxiety medication 2 months ago. Patient notes she has been experiencing for the last 5 years daily since having her youngest child, but she had stopped around 2 months old, concerned on why she keeps lactating. Patient denies any abdominal pain, N/V, dizziness, fever, chills, dysuria, flank pain, or pelvic pain. Chief Complaint: Vaginal Bleed Time Seen by MD: 06:21 Reviewed Notes: Nurses Notes, Medications, Allergies Allergies: Coded Allergies: NO KNOWN ALLERGIES (Unverified , 08/08/23) Home Meds Active Scripts Metronidazole (Flagyl) 375 Mg Cap, 375 MG PO TID for 10 Days, #30 CAP Prov:PALLAVI DIALLO MD 07/26/23 Cyclobenzaprine HCl (Cyclobenzaprine Hydrochlo) 10 Mg Tab, 10 MG PO BIDPRN PRN for 5 Days, #10 TAB 0 Refills Prov:PALLAVI DIALLO MD 07/26/23 Naproxen (NAPROSYN TABLET) 500 Mg Tb, 1 TAB.EC PO BID PRN for 10 Days, #20 TAB 1 Refill Prov:PALLAVI DIALLO MD 07/26/23 Reported Medications Cholecalciferol (VITAMIN D3) 2,000 Unit Tab, 1 TAB PO DAILY, #30 TAB 5 Refills 07/17/20 Information Source: Patient Mode of Arrival: Ambulatory Timing: Days Prehospital treatment: None Severity: Moderate Bleeding Quality: Bright Red Onset Of Mass/Bleeding: Spontaneous Sexual Activity: Neither Last Consensual [place]: Unknown Control: None Associated Signs and Symptoms: Vaginal Bleeding Past Medical History PAST MEDICAL HISTORY: Anxiety Surgical History: Cholecystectomy MEASUREMENT TECHNICIAN History: No Pertinent MEASUREMENT TECHNICIAN History Family History Family History: Family hx of Cancer Social History Smoker: Non-Smoker Alcohol: Denies ETOH Use Drugs: Denies Drug Use Lives In: Home Constitutional: denies: chills, diaphoresis, fatigue, fever, malaise, sweats, weakness, others EENTM: denies: blurred vision, double vision, ear bleeding, ear discharge, ear drainage, ear pain, ear ringing, eye pain, eye redness, hearing loss, mouth pain, mouth swelling, nasal discharge, nose bleeding, nose congestion, nose pain, photophobia, tearing, throat pain, throat swelling, voice changes, others Respiratory: denies: cough, hemoptysis, orthopnea, SOB at rest, shortness of breath, SOB with excertion, stridor, wheezing, others Cardiovascular: denies: chest pain, dizzy spells, diaphoresis, Dyspnea on exertion, edema, irregular heart beat, left arm pain, lightheadedness, palpitations, PND, syncope, others Gastrointestinal: reports: diarrhea; denies: abdomen distended, abdominal pain, blood streaked bowels, constipated, dysphagia, difficulty swallowing, hematemesis, melena, nausea, poor appetite, poor fluid intake, rectal bleeding, rectal pain, vomiting, others Genitourinary: reports: abnormal vagina bleeding; denies: burning, dyspareunia, dysuria, flank pain, frequency, hematuria, incontinence, pain, , vagina discharge, urgency, others Neurological: reports: headache; denies: dizziness, fainting, left sided numbness, left sided weakness, numbness, paresthesia, pre-existing deficit, right sided numbness, right sided weakness, seizure, speech problems, tingling, tremors, weakness, others Musculoskeletal: denies: back pain, gout, joint pain, joint swelling, muscle pain, muscle stiffness, neck pain, others Integumetry: denies: bruises, change in color, change in hair/nails, dryness, laceration, lesions, lumps, rash, wounds, others Allergic/Immunocompromised: denies: Difficulty Healing, Frequent Infections, Hives, Itching, others Hematologic/Lymphatic: denies: anemia, blood clots, easy bleeding, easy bruising, swollen glands, others Endocrine: denies: excessive hunger, excessive sweating, excessive thirst, excessive urination, flushing, intolerance to cold, intolerance to heat, unexplained weight gain, unexplained weight loss, others Psychiatric: denies: anxiety, bipolar disorder, depression, hopeless, panic disorder, schizophrenia, sleepless, suicidal, others All Other Systems: Reviewed and Negative Physical Exam General Appearance: No Apparent Distress, Normal HEENT: Normal ENT Inspection, Pharynx Normal, TMs Normal Neck: Full Range of Motion, Non-Tender, Normal, Normal Inspection Respiratory: Chest Non-Tender, Lungs Clear, No Accessory Muscle Use, No Respiratory Distress, Normal Breath Sounds Cardiovascular: No Edema, No JVD, No Murmur, No Gallop, Normal Peripheral Pulses, Regular Rate/Rhythm Breast Exam: Deferred Gastrointestinal: No Organomegaly, Non Tender, No Pulsatile Mass, Normal Bowel Sounds, Soft Genitalia: Deferred Pelvic: Deferred Rectal: Deferred Extremities: No calf tenderness, Normal capillary refill, Normal inspection, Normal range of motion, Non-tender, No pedal edema Musculoskeletal : Apperance: Normal Neurologic: Alert, soft crab shedder II-XII nml as Tested, No Motor Deficits, Normal Affect, Normal Mood, No Sensory Deficits Cerebellar Function: Normal Reflexes: Normal Skin: Dry, Normal Color, Warm Lymphatic: No Adenopathy Was a procedure done? Was a procedure done?: No Differential Diagnosis (MEASUREMENT TECHNICIAN) Vaginal Bleeding: Dysmenorrhea Mass / Lesion: PID Vaginal Discharge: UTI X-Ray, Labs, Meds, VS Vital Signs Date Time Temp Pulse Resp B/P (MAP) Pulse Ox O2 Delivery O2 Flow Rate FiO2 03/28/25 13:36 98.4 90 18 155/96 (115) 96 98.4 03/28/25 11:04 97.9 100 19 151/103 (119) 98 97.9 03/28/25 06:58 150/101 03/28/25 06:00 113 16 98 Room Air* 0 21 03/28/25 06:00 97.9 113 16 155/99 (117) 98 97.9 03/28/25 05:39 179/119 03/28/25 05:24 98.8 122 16 179/119 (139) 97 98.8 Lab Test 03/28/25 11:56 03/28/25 06:03 Range/Units Urine Color Light-yellow Yellow Urine Clarity Clear Clear Urine pH 6.0 5.0-9.0 Urine Specific [employer] 1.015 1.001-1.035 Urine Protein Negative Negative Urine Ketones 1+ H Negative Urine Blood 3+ H Negative /uL Urine Nitrite Negative Negative Urine Bilirubin Negative Negative Urine Urobilinogen Normal Negative mg/dL Urine Leukocyte Esterase 2+ Negative /uL Urine RBC 2 0 - 4 /hpf Urine Microscopic WBC 8 H 0-5 /HPF Urine Squamous Epithelial Cells Few <5 /hpf Urine Bacteria None seen None Seen /hpf Urine Mucus Few None Seen Urine Glucose Normal Normal mg/dL White Blood Count 10.0 4.4-10.8 10^3/uL Red Blood Count 4.88 4.0-5.20 10^6/uL Hemoglobin 15.2 12.2-16.2 g/dL Hematocrit 42.7 36.0-46.0 % Mean Corpuscular Volume 87.5 80.0-100.0 fL Mean Corpuscular Hemoglobin 31.1 28.0-32.0 pg Mean Corpuscular Hemoglobin Concent 35.6 32.0-36.0 g/dL Red Cell Distribution Width 13.3 11.8-14.3 % Platelet Count 184 140-450 10^3/uL Mean Platelet Volume 10.3 6.9-10.8 fL Neutrophils (%) (Auto) 84.5 H 37.0-80.0 % Lymphocytes (%) (Auto) 11.5 10.0-50.0 % Monocytes (%) (Auto) 3.3 0.0-12.0 % Eosinophils (%) (Auto) 0.4 0.0-7.0 % Basophils (%) (Auto) 0.3 0.0-2.0 % Neutrophils # (Auto) 8.5 1.6-8.6 10 ^3/uL Lymphocytes # (Auto) 1.2 0.4-5.4 10 ^3/uL Monocytes # (Auto) 0.3 0-1.3 10 ^3/uL Eosinophils # (Auto) 0 0-0.8 10 ^3/uL Basophils # (Auto) 0 0-0.2 10 ^3/uL Nucleated Red Blood Cells 0.0 % Sodium Level 144 136-145 mmol/L Potassium Level 2.9 L 3.5-5.1 mmol/L Chloride Level 104 98-107 mmol/L Carbon Dioxide Level 27 20-31 mmol/L Anion Gap 13 5-15 Blood Urea Nitrogen 10 9-23 mg/dL Creatinine 0.73 0.550-1.02 mg/dL Glomerular Filtration Rate Calc 103 >90 mL/min BUN/Creatinine Ratio 13.7 10.0-20.0 Serum Glucose 135 H 74-106 mg/dL Calcium Level 10.5 H 8.7-10.4 mg/dL Total Bilirubin 1.5 H 0.2-1.0 mg/dL Aspartate Amino Transferase (AST) 22 <34 U/L Alanine Aminotransferase (ALT) 16 7-40 U/L Alkaline Phosphatase 53 46-116 U/L Total Protein 7.9 5.7-8.2 g/dL Albumin 5.2 H 3.2-4.8 g/dL Current Medications Medications (Trade) Dose Ordered Sig/Mati Route Start Time Stop Time Status Last Admin Clonidine HCl (Catapres Tablet) 0.1 mg ONCE ONCE PO 03/28/25 05:30 03/28/25 05:31 DC 03/28/25 05:39 Potassium Chloride (Klor-Con Tablet) 40 meq ONCE ONCE PO 03/28/25 07:00 03/28/25 07:01 DC 03/28/25 07:14 Time of 1ST Reevaluation: 07:21 Reevaluation 1ST: Improved Patient Education/Counseling: Diagnosis, Treatment Family Education/Counseling: No Family Present Additional Information Previous visits reviewed: 07/31/23 for abdominal and back pain The following tests were ordered, and results were reviewed by me: Preg urine, CBC, CMP, UA Additional Information was gathered from interviewing the following independent historians: None I reviewed and agreed with the following test results read by other providers: None I discussed treatment and results with medical personnel and: patient Comprehensive systems review obtained and negative except for what is stated in the HPI. Departure 1 Departure Time of Disposition: 14:10 (Patient had extended length of stay because patient had eloped and was sleeping in her car. Patient then returned many hours later to continue her treatment. In my judgment patient likely has a hormonal imbalance and we will refer patient to OBGYN for further workup and expert consultation.) Impression: Primary Impression: Dysmenorrhea Additional Impression: disorder Disposition: HOME / SELF CARE / HOMELESS Condition: Stable Referrals: ARACELI COUGHLIN DO Additional Instructions: Your workup today was benign including normal labs, normal urine, normal CT scan. You were referred to OBGYN regarding your irregular vaginal bleeding. It is important to call for an appointment. If your symptoms worsen or if any other concerns please return to the emergency room. Critical Care Note Critical Care Time?: No Stability Stability form required: No Heart Score Heart Score: Heart Score Response (Comments) Value History N/A 0 EKG N/A 0 Age N/A 0 Risk Factors N/A 0 Troponin N/A 0 Total 0 I personally scribed for TERE GARNICA MD ([email or web address]) on 03/28/25 at 06:32. Electronically submitted by Jon August ([email or web address]). TERE GARNICA MD Mar 28, 2025 06:32
[2025-03-28 06:39] LABS: Alanine Aminotransferase 16 U/L (7-40); Alkaline Phosphatase 53 U/L (46-116); Anion Gap 13 (5-15); Aspartate Aminotransferase 22 U/L (<34); BUN/Creatinine Ratio 13.7 (10.0-20.0); Blood Urea Nitrogen 10 mg/dL (9-23); Carbon Dioxide 27 mmol/L (20-31); Chloride 104 mmol/L (98-107); Sodium 144 mmol/L (136-145); Total Protein 7.9 g/dL (5.7-8.2)
[2025-03-28 06:43] LABS: Albumin 5.2 g/dL (3.2-4.8); Bilirubin, Total 1.5 mg/dL (0.2-1.0); Calcium 10.5 mg/dL (8.7-10.4); Glucose 135 mg/dL (74-106); Potassium 2.9 mmol/L (3.5-5.1)
[2025-03-28] MEDS: POTASSIUM CHL 20 Meq TABLET PO ONE (07:14)
[2025-03-28 11:58] LABS: Urine Bacteria None Seen /hpf (None Seen)
[2025-03-28 12:23] LABS: Urine Blood 3+ /uL (Negative); Urine Clarity Clear (Clear); Urine Color Light-Yellow (Yellow); Urine Mucus FEW (None Seen); Urine Protein, UAD Negative (Negative); Urine Specific Gravity 1.015 (1.001-1.035); Urine Squamous Epithelial Cell FEW /hpf (<5); Urine Urobilinogen Normal (Negative); Urine WBC 8 /HPF (0-5)
[2025-03-28 13:36] VITALS: BP 155/96; PULSE 90; RESP 18; TEMP 98.4; O2SAT 96
--- NOTE | 2025-03-28 13:50 | DVH ---
EXAM: CT HEAD WITHOUT CONTRAST INDICATION: lactating TECHNIQUE: CT of the head without intravenous contrast. Radiation Dose : 1. Head: CT Dose: CTDI volume is 53 mGy. Dose-length product is 864 mGy*cm The dose indicators for CT are the volume Computed Tomography (CT) Dose Index (CTDIvol) and the Dose Length Product (DLP), and are measured in units of mGy and mGy-cm, respectively. These indicators are not patient dose, but values generated from the CT scanner acquisition factors. The report includes radiation exposure data for exposures received during this examination. COMPARISON: None FINDINGS: There is no evidence of acute intracranial hemorrhage, extra-axial collection, mass effect, midline s hift, herniation or hydrocephalus. The ventricles, sulci and cisterns are age appropriate. The quinones-white differentiation is intact. The visualized paranasal sinuses and mastoid air cells are clear. The surrounding soft tissues and osseous structures are unremarkable. IMPRESSION: No acute intracranial abnormality. Radiation optimization: All CT scans at this facility use at least one of these dose optimization hal hniques: automated exposure control mA and/or kV adjustment per patient size (includes targeted exam s where dose is matched to clinical indication) or iterative reconstruction.
== END 2025-03-28 14:15 | disposition home or self-care (01) ==
LOC: ER 05:14
DX: O92.70 Unspecified disorders of lactation (principal); N94.6 Dysmenorrhea, unspecified; F41.9 Anxiety disorder, unspecified; Z90.49 Acquired absence of other specified parts of digestive tract
CPT/HCPCS: 36415; 70450; 80053; 81001; 85025